=== PATIENT | male | born 1985 | race Caucasian/White ===

== ENCOUNTER 2019-11-24 09:13 | Outpatient (REF) | payer OTHER, SELFPAY ==
[2019-11-24 22:16] LABS: ALT 33 U/L (16-63); AST 16 U/L (15-37); Albumin 3.8 g/dL (3.4-5.0); Alkaline Phosphatase 81 U/L (46-116); Anion Gap 11.7 mmol/L (3-11); BUN 19 mg/dL (7-18); Bilirubin, Total 0.5 mg/dL (0.2-1.0); CO2 23.3 mmol/L (21.0-32.0); CREATININE 0.97 mg/dL (0.70-1.30); Calcium 8.8 mg/dL (8.5-10.1); Calculated LDL 122 mg/dL (<100); Chloride 107 mmol/L (98-107); Cholesterol 172 mg/dL (<200); Glucose 97 mg/dL (74-106); HDL Cholesterol 38 mg/dL (40-60); Potassium 4.3 mmol/L (3.5-5.1); Sodium 142 mmol/L (136-145); Total Protein 6.9 g/dL (6.4-8.2); Triglyceride 64 mg/dL (<150)
[2019-11-24 22:26] LABS: Hemoglobin A1C 5.3 % (3.8-5.6)
[2019-11-26 10:29] LABS: HBs Antibody, Quant 34.7 mIU/mL (See Note); Hepatitis B Surface Ab Positive (See Note)
[2019-11-26 10:46] LABS: Hepatitis B Surface Ag Negative (Negative)
== END 2019-11-24 09:33 ==
LOC: NCHCN 09:13
PROVIDERS: PCP Nurse Practitioner Family; Visit Provider Nurse Practitioner Family
DX: Z00.00 Encounter for general adult medical examination without abnormal findings (principal)
CPT/HCPCS: 80053; 80061; 86706; 87340; 83036